=== PATIENT | female | born 1970 | race Hispanic/Latino ===

== ENCOUNTER 2022-10-01 12:27 | Outpatient (CLI) | payer OTHER | END 2022-10-01 12:28 | disposition home or self-care (01) | LOC: SCSRAD 12:27 | PROVIDERS: ATTEND Nurse Practitioner Family | DX: M54.50 Low back pain, unspecified (principal); M46.1 Sacroiliitis, not elsewhere classified; K80.20 Calculus of gallbladder without cholecystitis without obstruction | CPT/HCPCS: 72100; 74018 ==